=== PATIENT | female | born 1960 | race Caucasian/White ===

== ENCOUNTER 2020-10-21 14:57 | Emergency (ER) | payer MEDICAID, OTHER ==
[~2020-10-21] VITALS: Ht 149.9 cm; Wt 72.6 kg
[2020-10-21 15:23] VITALS: BP 154/99
[2020-10-21] MEDS ORDERED: KETOROLAC 30 MG/ML VIAL IM ONE (15:35)
--- NOTE | 2020-10-21 15:36 | NUR ---
Pt taken to XR by [facility].
--- NOTE | 2020-10-21 15:40 | NUR ---
60 y/o female c/o right arm pain 05/28 throbbing X1 s/p fall. Denies PMH/RX NKA
[2020-10-21 16:37] VITALS: BP 154/99
--- NOTE | 2020-10-21 16:38 | NUR ---
Patient discharged with v/s stable. Written and verbal after care instructions given and explained. Patient alert, oriented and verbalized understanding of instructions. Ambulatory with steady gait. All questions addressed prior to discharge. ID band removed. Patient advised to follow up with PMD. Rx of ibuprofen 600mg TID PO PRN pain/fever, and tynenol with codeine#3 given. Patient educated on indication of medication including possible reaction and side effects. Opportunity to ask questions provided and answered.
== END 2020-10-21 16:38 | disposition home or self-care (01) ==
LOC: MED 14:57
DX: S46.811A Strain of other muscles, fascia and tendons at shoulder and upper arm level, right arm, initial encounter (principal); W18.09XA Striking against other object with subsequent fall, initial encounter; Y93.89 Activity, other specified; Y92.89 Other specified places as the place of occurrence of the external cause; Y99.8 Other external cause status
CPT/HCPCS: 29125; 73080; 96372; 99283; J1885

== ENCOUNTER 2020-10-24 14:09 | Emergency (ER) | payer OTHER ==
[~2020-10-24] VITALS: Ht 149.9 cm; Wt 83.0 kg
[2020-10-24 14:28] VITALS: BP 159/95
--- NOTE | 2020-10-24 14:31 | NUR ---
Pt sent to lobby to wait for MSE.
--- NOTE | 2020-10-24 15:00 | NUR ---
Patient discharged with v/s stable. Written and verbal after care instructions given and explained. Patient alert, oriented and verbalized understanding of instructions. Ambulatory with steady gait. All questions addressed prior to discharge. ID band removed. Patient advised to follow up with PMD. Rx of Tylenol with codeine #3 given with work excuse. Patient educated on indication of medication including possible reaction and side effects. Opportunity to ask questions provided and answered.
== END 2020-10-24 15:00 | disposition home or self-care (01) ==
LOC: MED 14:09
DX: S52.121A Displaced fracture of head of right radius, initial encounter for closed fracture (principal); M25.521 Pain in right elbow; Z98.890 Other specified postprocedural states; W18.39XA Other fall on same level, initial encounter; Y93.89 Activity, other specified; Y92.89 Other specified places as the place of occurrence of the external cause; Y99.8 Other external cause status
CPT/HCPCS: 99283

== ENCOUNTER 2020-10-27 05:56 | Emergency (ER) | payer OTHER ==
[~2020-10-27] VITALS: Ht 149.9 cm; Wt 81.6 kg
[2020-10-27 06:04] VITALS: BP 132/77
--- NOTE | 2020-10-27 06:07 | NUR ---
TO LOBBY A/W BED AMBULATORY
[2020-10-27] MEDS ORDERED: HYDROcodone/APAP 10/325 MG 1 TAB TAB PO ONE (06:25)
--- NOTE | 2020-10-27 06:25 | NUR ---
SEEN AND EXAMINED BY DIANA WITH ORDERS, CARRIED OUT
--- NOTE | 2020-10-27 06:30 | NUR ---
MEDICATED PER [facility] ORDER, TOLERATED WELL.
[2020-10-27] MEDS ORDERED: ACETAMINOPHEN EXTRA STRENGTH 500 MG TAB PO ONE (06:55)
[2020-10-27 07:10] VITALS: BP 121/79
--- NOTE | 2020-10-27 07:10 | NUR ---
Patient discharged with v/s stable. Written and verbal after care instructions given and explained. Patient alert, oriented and verbalized understanding of instructions. Ambulatory with steady gait. All questions addressed prior to discharge. ID band removed. Patient advised to follow up with PMD. Rx of IBUPROFEN, NORCO given. Patient educated on indication of medication including possible reaction and side effects. Opportunity to ask questions provided and answered.
== END 2020-10-27 07:10 | disposition home or self-care (01) ==
LOC: MED 05:56
DX: S52.121K Displaced fracture of head of right radius, subsequent encounter for closed fracture with nonunion (principal); X58.XXXD Exposure to other specified factors, subsequent encounter
CPT/HCPCS: 29105; 99283

== ENCOUNTER 2020-11-01 09:53 | Emergency (ER) | payer OTHER ==
[~2020-11-01] VITALS: Ht 149.9 cm; Wt 127.0 kg
[2020-11-01 09:57] VITALS: BP 123/86
--- NOTE | 2020-11-01 11:06 | NUR ---
PT PENDING DISCHARGE. PT REQUESTING RX FOR TYLENOL WITH CODEINE. DR. BUSTOS MADE AWARE.
[2020-11-01 11:12] VITALS: BP 123/86
--- NOTE | 2020-11-01 11:12 | NUR ---
Patient discharged with v/s stable. Written and verbal after care instructions given and explained. Patient verbalized understanding. Ambulatory with steady gait. All questions addressed prior to discharge. Advised to follow up with PMD.
== END 2020-11-01 11:12 | disposition home or self-care (01) ==
LOC: MED 09:53
DX: S42.401K Unspecified fracture of lower end of right humerus, subsequent encounter for fracture with nonunion (principal); X58.XXXD Exposure to other specified factors, subsequent encounter
CPT/HCPCS: 29105; 99283

== ENCOUNTER 2020-12-25 10:46 | Emergency (ER) | payer OTHER ==
[~2020-12-25] VITALS: Ht 147.3 cm; Wt 82.1 kg
[2020-12-25 10:51] VITALS: BP 135/76
[2020-12-25 13:10] VITALS: BP 156/84
== END 2020-12-25 13:13 | disposition home or self-care (01) ==
LOC: MED 10:46
DX: R19.7 Diarrhea, unspecified (principal); R10.9 Unspecified abdominal pain
CPT/HCPCS: 99281

== ENCOUNTER 2021-05-11 07:38 | Emergency (ER) | payer OTHER ==
[~2021-05-11] VITALS: Ht 149.9 cm; Wt 80.9 kg
[2021-05-11 07:42] VITALS: BP 154/107
--- NOTE | 2021-05-11 07:47 | NUR ---
pt ambulated to bed 08.
[2021-05-11] MEDS ORDERED: ACETAMINOPHEN 325 MG TAB PO ONE (07:55)
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
[2021-05-11] MEDS ORDERED: ACETAMINOPHEN 325 MG TAB ONE (07:57)
== END 2021-05-11 09:05 | disposition home or self-care (01) ==
LOC: MED 07:38
DX: M79.601 Pain in right arm (principal)
CPT/HCPCS: 73060; 99283

== ENCOUNTER 2021-09-04 08:43 | Emergency (ER) | payer OTHER ==
[~2021-09-04] VITALS: Ht 144.8 cm; Wt 83.0 kg
[2021-09-04 08:49] VITALS: BP 157/107
--- NOTE | 2021-09-04 08:54 | NUR ---
PATIENT AMBULATED TO BED 8.
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
[2021-09-04] MEDS ORDERED: ACETAMINOPHEN 325 MG TAB PO ONE (09:20)
--- NOTE | 2021-09-04 09:30 | NUR ---
TAKEN TO CT AND XRAY VIA W/C.
[2021-09-04] MEDS: ACETAMINOPHEN EXTRA STRENGTH 500 MG TAB PO ONE (09:43)
[2021-09-04] MEDS: LIDOCAINE 5% 1 EA PATCH TP SCH (09:43)
--- NOTE | 2021-09-04 11:00 | NUR ---
PATIENT RESTING IN BED WITH EYES CLOSED, AWAITING RESULTS, NO NEW C/O PAIN. ALL NEEDS MET AT THIS TIME.
[2021-09-04] MEDS ORDERED: LID5T TP (12:20)
[2021-09-04 12:30] VITALS: BP 157/107
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
[2021-09-05] MEDS ORDERED: LIDOCAINE 5% 1 EA PATCH TP SCH (09:00)
== END 2021-09-04 12:30 | disposition home or self-care (01) ==
LOC: MED 08:43
DX: S09.90XA Unspecified injury of head, initial encounter (principal); R07.89 Other chest pain; J32.0 Chronic maxillary sinusitis; J40 Bronchitis, not specified as acute or chronic; Z79.899 Other long term (current) drug therapy; V89.2XXA Person injured in unspecified motor-vehicle accident, traffic, initial encounter; Y93.89 Activity, other specified; Y92.410 Unspecified street and highway as the place of occurrence of the external cause; Y99.8 Other external cause status
CPT/HCPCS: 70450; 71046; 99284

== ENCOUNTER 2021-12-04 12:29 | Emergency (ER) | payer OTHER ==
[~2021-12-04] VITALS: Ht 149.9 cm; Wt 83.5 kg
[~2021-12-04 12:29] MED LIST: LID5T TP
[2021-12-04 12:42] VITALS: BP 176/105
[2021-12-04] MEDS ORDERED: PROM118S5 PO (13:51)
[2021-12-04] MEDS ORDERED: IBUP-2213 PO (13:51)
[2021-12-04 14:20] VITALS: BP 121/80
--- NOTE | 2021-12-04 14:21 | NUR ---
Patient discharged with v/s stable. Written and verbal after care instructions given and explained. Patient alert, oriented and verbalized understanding of instructions. Ambulatory with steady gait. All questions addressed prior to discharge. ID band removed. Patient advised to follow up with PMD. Rx of PHENERGAN given. Patient educated on indication of medication including possible reaction and side effects. Opportunity to ask questions provided and answered.
== END 2021-12-04 14:20 | disposition home or self-care (01) ==
LOC: MED 12:29
DX: R68.83 Chills (without fever) (principal); Z20.822 Contact with and (suspected) exposure to COVID-19; Z79.899 Other long term (current) drug therapy
CPT/HCPCS: 99283

== ENCOUNTER 2021-12-25 10:13 | Emergency (ER) | payer OTHER ==
[~2021-12-25] VITALS: Ht 149.9 cm; Wt 81.6 kg
[~2021-12-25 10:13] MED LIST changes: +IBUP-2213 PO; +PROM118S5 PO
[2021-12-25 11:15] VITALS: BP 165/101
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
--- NOTE | 2021-12-25 11:25 | NUR ---
DR KAY AT BEDSIDE FOR MSE
[2021-12-25] MEDS ORDERED: FLONAS NS (11:35)
[2021-12-25] MEDS ORDERED: AMOX500C25 PO (11:35)
[2021-12-25 11:45] VITALS: BP 165/101
--- NOTE | 2021-12-25 11:45 | NUR ---
Patient discharged with v/s stable. Written and verbal after care instructions ABOUT SINUSITIS given and explained. Patient alert, oriented and verbalized understanding of instructions. Ambulatory with steady gait. All questions addressed prior to discharge. ID band removed. Patient advised to follow up with PMD. Rx of AMOXICILLIN AND FLONASE NASAL given. Patient educated on indication of medication including possible reaction and side effects. Opportunity to ask questions provided and answered.
== END 2021-12-25 11:45 | disposition home or self-care (01) ==
LOC: MED 10:13
DX: J01.90 Acute sinusitis, unspecified (principal); B96.89 Other specified bacterial agents as the cause of diseases classified elsewhere; K59.00 Constipation, unspecified; Z79.899 Other long term (current) drug therapy
CPT/HCPCS: 99283

== ENCOUNTER 2022-01-23 07:49 | Emergency (ER) | payer OTHER ==
[~2022-01-23] VITALS: Ht 149.9 cm; Wt 80.7 kg
[~2022-01-23 07:49] MED LIST changes: +AMOX500C25 PO; +FLONAS NS
[2022-01-23 07:53] VITALS: BP 153/90
--- NOTE | 2022-01-23 07:56 | NUR ---
AMBULATED TO BED 5
[2022-01-23] MEDS ORDERED: BISM262T5 PO (08:14)
--- NOTE | 2022-01-23 08:15 | NUR ---
AT PT BEDSIDE
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
[2022-01-23 08:36] VITALS: BP 153/90
--- NOTE | 2022-01-23 08:37 | NUR ---
Patient discharged with v/s stable. Written and verbal after care instructions given and explained. Patient alert, oriented and verbalized understanding of instructions. Ambulatory with steady gait. All questions addressed prior to discharge. ID band removed. Patient advised to follow up with PMD. Rx of PEPTO-BISMOL given. Patient educated on indication of medication including possible reaction and side effects. Opportunity to ask questions provided and answered.
== END 2022-01-23 08:37 | disposition home or self-care (01) ==
LOC: MED 07:49
DX: K52.9 Noninfective gastroenteritis and colitis, unspecified (principal); R19.7 Diarrhea, unspecified; Z79.899 Other long term (current) drug therapy; Z98.890 Other specified postprocedural states
CPT/HCPCS: 99282

== ENCOUNTER 2023-01-27 17:35 | Emergency (ER) | payer OTHER ==
[~2023-01-27] VITALS: Ht 149.9 cm; Wt 81.6 kg
[~2023-01-27 17:35] MED LIST changes: +BISM262T5 PO
[2023-01-27 17:42] VITALS: BP 163/111
[2023-01-27] MEDS ORDERED: KETOROLAC 30 MG/ML VIAL IM ONE (18:25)
[2023-01-27] MEDS ORDERED: LIDOCAINE MPF 1% 10 MG/ML VIAL INJ ONE (18:25)
--- NOTE | 2023-01-27 19:00 | NUR ---
TO ER BED 1
[2023-01-27] MEDS ORDERED: IBUP-2213 PO (19:49)
[2023-01-27] MEDS ORDERED: SULF-58 PO (19:49)
[2023-01-27 20:10] VITALS: BP 163/111
== END 2023-01-27 20:10 | disposition home or self-care (01) ==
LOC: MED 17:35
DX: L02.611 Cutaneous abscess of right foot (principal); L84 Corns and callosities; Z79.1 Long term (current) use of non-steroidal anti-inflammatories (NSAID); Z79.2 Long term (current) use of antibiotics; Z79.899 Other long term (current) drug therapy
CPT/HCPCS: 10060; 87070; 87075; 87205; 99284; J2001

== ENCOUNTER 2023-01-30 12:00 | Emergency (ER) | payer OTHER ==
[~2023-01-30] VITALS: Ht 152.4 cm; Wt 81.6 kg
[~2023-01-30 12:00] MED LIST changes: +SULF-58 PO
[2023-01-30 12:28] VITALS: BP 156/99
== END 2023-01-30 14:37 | disposition home or self-care (01) ==
LOC: MED 12:00
DX: Z48.01 Encounter for change or removal of surgical wound dressing (principal); Z79.899 Other long term (current) drug therapy; Z79.1 Long term (current) use of non-steroidal anti-inflammatories (NSAID); Z79.2 Long term (current) use of antibiotics
CPT/HCPCS: 99281

== ENCOUNTER 2023-02-20 19:13 | Emergency (ER) | payer OTHER ==
[~2023-02-20] VITALS: Ht 149.9 cm; Wt 86.2 kg
[2023-02-20 20:26] VITALS: BP 167/94
--- NOTE | 2023-02-20 21:04 | NUR ---
Patient returned back from X-ray.
--- NOTE | 2023-02-20 21:32 | NUR ---
Dr. Ervin explained results and treatment plans/
[2023-02-20] MEDS ORDERED: HYDROcodone/APAP 5/325 MG 1 TAB TAB PO ONE (21:55)
[2023-02-20] MEDS ORDERED: ACET-8905 PO (22:03)
[2023-02-20] MEDS ORDERED: ACET-9800 PO (22:03)
[2023-02-20] MEDS ORDERED: LID5T TP (22:03)
[2023-02-20 22:34] VITALS: BP 148/76
--- NOTE | 2023-02-20 22:34 | NUR ---
Patient discharged with v/s stable. Written and verbal after care instructions given and explained. Patient alert, oriented and verbalized understanding of instructions. Ambulatory with steady gait. All questions addressed prior to discharge. ID band removed. Patient advised to follow up with PMD. Rx of Lidocaine, Tylenol and [place] given. Patient educated on indication of medication including possible reaction and side effects. Opportunity to ask questions provided and answered.
== END 2023-02-20 22:34 | disposition home or self-care (01) ==
LOC: MED 19:13
DX: S70.01XA Contusion of right hip, initial encounter (principal); X58.XXXA Exposure to other specified factors, initial encounter; Y93.89 Activity, other specified; Y92.89 Other specified places as the place of occurrence of the external cause; Y99.8 Other external cause status
CPT/HCPCS: 73502; 99283

== ENCOUNTER 2024-02-09 16:19 | Emergency (ER) | payer OTHER ==
[~2024-02-09] VITALS: Ht 149.9 cm; Wt 86.2 kg
[~2024-02-09 16:19] MED LIST changes: +ACET-8905 PO; +ACET-9800 PO; +CYCL-711 PO
[2024-02-09 16:32] VITALS: BP 167/114; PULSE 85; RESP 18; TEMP 96.9; O2SAT 97
[2024-02-09] MEDS ORDERED: ACET-8905 PO (18:24)
[2024-02-09] MEDS ORDERED: DICL100G32 TP (18:24)
[2024-02-09] MEDS: KETOROLAC 30 MG/ML VIAL IM ONE (18:36)
[2024-02-09 18:45] VITALS: BP 135/82; PULSE 78; RESP 16; TEMP 98; O2SAT 99
== END 2024-02-09 18:45 | disposition home or self-care (01) ==
LOC: MED 16:19
DX: S42.401A Unspecified fracture of lower end of right humerus, initial encounter for closed fracture (principal); M25.522 Pain in left elbow; W18.30XA Fall on same level, unspecified, initial encounter; Y93.89 Activity, other specified; Y92.89 Other specified places as the place of occurrence of the external cause; Y99.8 Other external cause status
CPT/HCPCS: 73080; 96372; 99283; J1885